=== PATIENT | male | born 1975 | race Caucasian/White ===

== ENCOUNTER 2025-04-27 11:55 | Emergency (ER) | payer OTHER ==
[~2025-04-27] VITALS: Ht 172.7 cm; Wt 78.0 kg
[2025-04-27 12:01] VITALS: TEMP 36.6; O2SAT 99
[2025-04-27] MEDS ORDERED: IBUP-2028 MT (12:28)
[2025-04-27] MEDS: DEXAMETHASONE 4MG/ML 1ML VIAL IM ONE (12:30)
[2025-04-27 12:34] VITALS: BP 124/84; PULSE 68; RESP 12; O2SAT 100
== END 2025-04-27 12:52 | disposition home or self-care (01) ==
LOC: ER 11:55
DX: M51.372 Other intervertebral disc degeneration, lumbosacral region with discogenic back pain and lower extremity pain (principal)
CPT/HCPCS: 96372; 99283; J1100; Z7610